=== PATIENT | female | born 1995 | race Caucasian/White ===

== ENCOUNTER 2025-07-16 08:53 | Emergency (ER) | payer OTHER ==
[~2025-07-16] VITALS: Ht 162.6 cm; Wt 83.9 kg
[2025-07-16 09:06] VITALS: BP 104/61; TEMP 98.3; O2SAT 97
[2025-07-16] MEDS ORDERED: AMOX500T2 PO (09:28)
[2025-07-16] MEDS ORDERED: IBUPROFEN 600 MG TABLET PO ONE (09:30)
[2025-07-16] MEDS ORDERED: AMOXICILLIN TRIHYDRATE 500 MG CAPSULE PO ONE (09:30)
[2025-07-16] MEDS ORDERED: IBUPROFEN 600 MG TABLET ONE (09:37)
[2025-07-16] MEDS ORDERED: AMOXICILLIN TRIHYDRATE 250 MG CAPSULE ONE (09:37)
== END 2025-07-16 09:51 | disposition home or self-care (01) ==
LOC: ER 09:02
DX: K08.89 Other specified disorders of teeth and supporting structures (principal)